=== PATIENT | male | born 1955 | race Caucasian/White ===

== ENCOUNTER → 2018-09-19 | Outpatient (CLI) | payer MEDICARE | END | disposition home or self-care (01) | LOC: PCVCCLINIC 15:28 | PROVIDERS: ATTEND Internal Medicine | DX: R06.09 Other forms of dyspnea (principal); E11.22 Type 2 diabetes mellitus with diabetic chronic kidney disease; I12.9 Hypertensive chronic kidney disease with stage 1 through stage 4 chronic kidney disease, or unspecified chronic kidney disease; E78.5 Hyperlipidemia, unspecified; N18.9 Chronic kidney disease, unspecified; Z88.0 Allergy status to penicillin; Z88.6 Allergy status to analgesic agent | CPT/HCPCS: 36415; 80061; G0463 ==

== ENCOUNTER → 2018-09-30 | Outpatient (CLI) | payer MEDICARE ==
[~2018-09-30] MED LIST: REGADENOSON 0.4 MG/5 ML DISP.SYRIN. IV ONE
--- NOTE | 2018-09-30 12:16 | PCVCIMAG ---
APPROVED REPORT Study performed: 09/30/2018 08:15:47 EXAM: Comprehensive 2D, Doppler, and color-flow Echocardiogram Patient Location: Echo lab Status: routine BSA: 2.03 HR: 76 bpmBP: 130/84 mmHg Rhythm: NSR Other Information Study Quality: Good Risk Factors: Cardiac Risk Factors: HTN, HTN, DM Indications Dyspnea Renal Disease 2D Dimensions IVSd: 14.39 (7-11mm)LVOT Diam: 22.81 (18-24mm) LVDd: 38.12 mm PWd: 10.25 (7-11mm)Ascending Ao: 37.21 (22-36mm) LVDs: 20.42 (25-40mm) Left Atrium: 39.17 (27-40mm) Aortic Root: 36.22 mm LV Single Plane 4CH: 51.05 % LV Single Plane 2CH: 55.39 % Biplane EF: 52.6 % Volumes Left Atrial Volume (Systole) Single Plane 4CH: 59.57 mLSingle Plane 2CH: 48.76 mL LA ESV Index: 27.00 mL/m2 Aortic Valve AoV Peak Maximo.: 1.37 m/s AO Peak Gr.: 7.56 mmHgLVOT Max P.50 mmHg LVOT Max V: 1.17 m/s OBIE Vmax: 3.48 cm2 Mitral Valve E/A Ratio: 1.0 MV Decel. Time: 184.41 ms MV E Max Maximo.: 0.82 m/s MV A Maximo.: 0.82 m/s IVRT: 96.89 ms TDI E/Lateral E': 11.71E/Medial E': 10.25 Medial E' Maximo.: 0.08 m/s Lateral E' Maximo.: 0.07 m/s Pulmonary Vein P Vein S: 0.60 m/sP Vein A: 0.29 m/s P Vein D: 0.40 m/sP Vein A Dur.: 103.8 msec P Vein S/D Ratio: 1.50 Tricuspid Valve TR Peak Maximo.: 2.52 m/s TR Peak Gr.: 25.33 mmHg Left Ventricle The left ventricle is normal size. There is normal LV segmental wall motion. There is normal left ventricular wall thickness. Left ventricular systolic function is normal. The left ventricular ejection fraction is within the normal range. LVEF is 60%. Right Ventricle The right ventricle is normal size. The right ventricular systolic function is normal. Atria The left atrium size is normal. The right atrium size is normal. Aortic Valve The aortic valve is normal in structure. No aortic regurgitation is present. There is no aortic valvular stenosis. Mitral Valve The mitral valve is normal in structure. There is no mitral valve regurgitation noted. No evidence of mitral valve stenosis. Tricuspid Valve The tricuspid valve is normal in structure. Trace tricuspid regurgitation. Pulmonary artery pressure is 32mmhg. Pulmonic Valve The pulmonary valve is normal in structure. There is no pulmonic valvular regurgitation. Great Vessels The aortic root is normal in size. IVC is normal in size and collapses >50% with inspiration. Pericardium There is no pericardial effusion. <Conclusion> The left ventricle is normal size. LVEF is 60%. The aortic valve is normal in structure. The mitral valve is normal in structure. The tricuspid valve is normal in structure. Trace tricuspid regurgitation. Pulmonary artery pressure is 32mmhg. The pulmonary valve is normal in structure. There is no pericardial effusion.
--- NOTE | 2018-09-30 12:19 | PCVCIMAG ---
APPROVED REPORT Imaging Protocol: Rest Tc-99m/Stress Tc-99m 1 day Study performed: 09/30/2018 08:56:46 Indication: Dyspnea Patient Location: Out-Patient Stress Nurse: Romina Abdalla RN CO Tech:Fawn CatherinePETRAMT Ht: 5 ft 9 in Wt: 191 lbs BSA: 2.03 m2 HR: 83 bpm BP: 165/83 mmHg BMI: 28.20 Rhythm: Normal Sinus Rhythm, Possible Inferior Infarct Medical History Medical History: Hyperlipidemia, HTN, Diabetic � Insulin, Former Smoker Medications: Albuterol, ASA, Atorvastatin, Wellbutrin, Plavix, HCT 2, Lisinopril Allergies: Codeine, MS, Penicillin Cardiac Risk Factors: Age Pretest Chest Pain Characteristics: No chest pain Resting Data Rest SPECT myocardial perfusion imaging was performed in supine position 45 minutes following the intravenous injection of 10.1 mCi of Tc-99m Sestamibi. Time of rest injection: 0845 Date: 09/30/2018 Administration Route: IV Administration Site: Right Wrist Pharmacologic Stress Pharmacologic stress test was performed by injecting Regadenoson 0.4 mg IV push over 10-15 seconds immediately followed by the intravenous injection of 33.7 mCi of Tc-99m Sestamibi. Time of stress injection: 1010 Date: 09/30/2018 Administration Route: IV Administration Site: Right Wrist Heart Rate at time of stress injection: 83 bpm. Gated Stress SPECT was performed 45 minutes after stress injection. Stress Test Details Stress Test: Pharmacologic stress was paired with low level exercise. Reason for pharmacologic stress test: stimulator for lower extremities. HRMax Heart Rate (APMHR): 158 bpm Resting HR: 83 bpmTarget HR (85% APMHR): 134 bpm Max HR Achieved: 113 bpm % of APMHR: 71 Recovery HR: 93 bpm BP Resting BP: 165/83 mmHg Max BP: 130/74 mmHg Recovery BP: 150/77 mmHg ECG Resting ECG: Normal Sinus Rhythm, Possible Inferior Infarct Stress ECG: Sinus Tachycardia Arrhythmia: None Recovery ECG: Sinus Rhythm Clinical Reason for Termination: Completed protocol Stress Symptoms: Dyspnea, Lightheaded Exercise duration: 4 min 00 sec Exercise capacity: 1.6 METs Symptoms resolved with caffeine. Stress ECG Conclusion 1. adequate response to iv lexiscan 2. inadequate heart rate for ecg diagnosis Study Data Post stress, the left ventricular ejection was 72%.. SSS: 1 SRS: 1 SDS: 1 TID = 0.89. Perfusion There is a large area of moderately reduced uptake in the entire segment of the inferiorapical wall which is seen on the stress images as well as the resting images. This area thickens and moves normally and is most consistent with attenuation artifact. Wall Motion Normal left ventricular wall motion. Nuclear Conclusion ECG Findings: non-diagnostic Clinical Findings: negative for ischemia Nuclear Findings: negative for ischemia Exercise Capacity: not assessed Left Ventricular Function: normal 1. low risk study 2. post exercise LVEF 72% without wall motion abnormalities <Conclusion> 1. adequate response to iv lexiscan 2. inadequate heart rate for ecg diagnosis
== END | disposition home or self-care (01) ==
LOC: PCVCIMAG 08:11
PROVIDERS: ATTEND Internal Medicine
DX: R06.02 Shortness of breath (principal); R06.09 Other forms of dyspnea; I12.9 Hypertensive chronic kidney disease with stage 1 through stage 4 chronic kidney disease, or unspecified chronic kidney disease; E11.22 Type 2 diabetes mellitus with diabetic chronic kidney disease; N18.2 Chronic kidney disease, stage 2 (mild); E78.5 Hyperlipidemia, unspecified; Z79.4 Long term (current) use of insulin; Z88.0 Allergy status to penicillin; Z88.8 Allergy status to other drugs, medicaments and biological substances; Z87.891 Personal history of nicotine dependence
CPT/HCPCS: 78452; 93017; 93306; A9500; J2785